=== PATIENT | female | born 1960 | race Caucasian/White ===

== ENCOUNTER 2018-04-25 20:58 | Inpatient (IN) | payer OTHER ==
[~2018-04-25] VITALS: Ht 154.9 cm; Wt 110.9 kg
[~2018-04-25 20:58] MED LIST: BENADRYL ALLERG25 MG PO; BUPROPION XL150 MG PO; BUSPAR10 MG PO; CALCI-CHEW500 MG PO; CLONAZEPAM0.5 MG PO; ERGOCALCIF50000 UNIT PO; FLINTSTONES WIT18 MG PO; IBUPROFEN600 MG PO; KLONOPIN0.5 M1 PO; KLONOPIN2 MG PO; MOTRIN600 MG PO; PRILOSEC20 MG PO; PROZAC40 MG PO; SERTRALINE HCL50 MG PO; TRAZODONE HCL50 MG PO; VITAMIN B-121000 MC3 PO; VOLTAREN75 MG PO; WELLBUTRIN SR150 MG PO; WELLBUTRIN XL150 MG PO; WELLBUTRIN XL300 MG PO; ZOLOFT100 MG PO
[2018-04-26 11:18] VITALS: BP 136/83
[2018-04-26 18:17] VITALS: BP 112/63
[2018-04-26 19:51] VITALS: BP 142/78
[2018-04-26 23:57] VITALS: BP 140/78
[2018-04-27 03:38] VITALS: BP 134/72
[2018-04-27 06:24] LABS: HEMATOCRIT 41.6 % (36.0-46.0); HEMOGLOBIN 13.9 G/DL (11.9-15.5); MCH 28.2 PG (29.0-34.0); MCHC 33.4 G/DL (30.0-36.0); MCV 84.4 FL (83-99); PLATELET COUNT 188 K/uL (156-360); RBC DIS.WIDTH-CV 14.2 % (11.8-14.6); RBC DIS.WIDTH-SD 43.5 % (39-53); RED BLOOD COUNT 4.93 M/uL (3.80-5.20); WHITE BLOOD COUNT 9.1 K/uL (4.1-10.2)
[2018-04-27 06:46] LABS: CHLORIDE 103 MEQ/L (99-109); CREATININE 0.9 MG/DL (0.6-1.3); GFR ESTIMATE (CALCULATED) > 59 mL/min/; GLUCOSE 105 mg/dL (70-99); POTASSIUM 4.6 MEQ/L (3.7-5.4); SODIUM 142 MEQ/L (136-147); UREA NITROGEN (BUN) 13 mg/dL (9-23)
[2018-04-27 07:40] VITALS: BP 132/74
[2018-04-27] MEDS ORDERED: DILAUDID4 MG PO (08:46)
[2018-04-27] MEDS ORDERED: COLACE100 MG PO (08:46)
[2018-04-27] MEDS ORDERED: ONDANSETRON HCL8 MG PO (08:46)
[2018-04-27] MEDS ORDERED: ACTIGALL300 MG PO (08:47)
[2018-04-27 11:34] VITALS: BP 127/84
== END 2018-04-27 13:10 | disposition home or self-care (01) | DRG 621 ==
LOC: ENRESERV 20:58 → 2SOUTH 04-26 10:32 → ENRESERV 04-26 14:22 → 2EAST 04-26 18:00
PROVIDERS: Surgery
PROC: 0DB64Z3 Excision of Stomach, Percutaneous Endoscopic Approach, Vertical (ICD-10-PCS; principal; 2018-04-26)
DX: E66.01 Morbid (severe) obesity due to excess calories (principal); Z68.42 Body mass index [BMI] 45.0-49.9, adult
CPT/HCPCS: 80048; 82948; 85027; 86850; 86900; 86901; 88300; C9113; J0131; J0330; J1100; J1170; J1644; J2001; J2250; J2405; J2710; J2765; J3010; J3475; J3480; J7643; Q0175; S0074